=== PATIENT | male | born 1940 | race Caucasian/White ===

== ENCOUNTER → 2017-05-25 | Outpatient (CLI) | payer OTHER, MEDICARE | LOC: FIMAGING 07:45 | PROVIDERS: ATTEND Internal Medicine Infectious Disease | DX: I87.2 Venous insufficiency (chronic) (peripheral) (principal); M79.604 Pain in right leg ==

== ENCOUNTER 2017-10-03 18:16 | Emergency (ER) | payer OTHER, MEDICARE ==
[2017-10-03 18:26] VITALS: RESP 18; TEMP 98.2; O2SAT 96
--- NOTE | 2017-10-03 18:53 | EDPHY ---
H & P Stated Complaint: fall hit head/no loc/memory deficits Time Seen by Provider: 10/03/17 18:52 HPI/ROS: CHIEF COMPLAINT: Mechanical fall, mild headache, amnesia HISTORY OF PRESENT ILLNESS: The patient presents the emergency department after he sustained a mechanical fall. The patient slipped while walking on ice. He fell backwards striking his occiput. The patient has had some retrograde amnesia since the fall. He complains of a mild headache. He denies neck pain, back pain, chest pain, antecedent palpitations or any acute neurologic symptoms. The patient is not anticoagulated. He does take an 81 mg aspirin on a daily basis. REVIEW OF SYSTEMS: A comprehensive 10 point review of systems is otherwise negative aside from elements mentioned in the history of present illness. Source: Patient Exam Limitations: No limitations - Personal History Current Tetanus/Diphtheria Vaccine: Unsure - Medical/Surgical History Hx Asthma: No Hx Chronic Respiratory Disease: No Hx Diabetes: Yes Hx Cardiac Disease: No Hx Renal Disease: No Hx Cirrhosis: No Hx Alcoholism: No Hx HIV/AIDS: No Hx Splenectomy or Spleen Trauma: No Other PMH: kidney/prostate/skin cancer - Social History Smoking Status: Never smoked - Physical Exam Exam: General Appearance: Alert, no distress Head: Atraumatic, minimal occipital tenderness, no hematoma Eyes: Pupils equal, round, reactive ENT, Mouth: No hemotympanum, no oral trauma Neck: Nontender, trachea midline Respiratory: No chest wall tender, subcutaneous air, lungs clear bilaterally Cardiovascular: Regular rate and rhythm Abdomen: Abdomen is soft and nontender, pelvis stable Skin: No lacerations, No abrasion Back: No midline T/L/S pain Extremities: Nontender, full range of motion Neurological: A&Ox3, normal motor function, normal sensory exam Constitutional: Initial Vital Signs Temperature (C) 36.8 C 10/03/17 18:22 Heart Rate 89 10/03/17 18:22 Respiratory Rate 18 10/03/17 18:22 Blood Pressure 119/86 H 10/03/17 18:22 O2 Sat (%) 96 10/03/17 18:22 O2 Delivery Mode Room Air Allergies/Adverse Reactions: No Known Allergies Allergy (Unverified 10/03/17 18:20) Home Medications: Medication Instructions Recorded Atorvastatin Calcium 10/03/17 Metformin HCl 10/03/17 Synthroid 10/03/17 Victoza 3-Stone 10/03/17 Medical Decision Making ED Course/Re-evaluation: Given the patient's age and acute neurologic complaints following a mechanical fall he was taken for a noncontrast head CT scan of the brain which demonstrates no evidence of an intracranial hemorrhage or skull fracture. The patient has a GCS of 15. He is neurologically intact. I have cleared his cervical spine clinically. I re-evaluated the patient at 7:30 p.m.. At this point time I do feel the patient can be discharged home as he is not anticoagulated. The patient will be given customary concussion aftercare instructions. He is advised to return to the emergency department for any severe headache, vomiting, abnormal behavior or other concerns. Differential Diagnosis: Differential diagnosis considered intracranial hemorrhage, skull fracture, concussion Departure - Departure Disposition: Home, Routine, Self-Care Clinical Impression: Concussion Condition: Good Instructions: Concussion (ED) Additional Instructions: 1. Concussion aftercare as directed. 2. Tylenol as needed for pain. 3. Return to the ED for severe headache, abnormal behavior, vomiting, numbness , weakness or other concerns. 4. Please follow-up with your primary care provider as scheduled. Referrals: Merna Pino MD [Primary Care Provider] - As per Instructions
[2017-10-03 19:55] VITALS: BP 126/82; PULSE 76
== END 2017-10-03 19:52 | disposition home or self-care (01) ==
DX: S06.0X0A Concussion without loss of consciousness, initial encounter (principal); E11.9 Type 2 diabetes mellitus without complications; Z79.84 Long term (current) use of oral hypoglycemic drugs; Z85.828 Personal history of other malignant neoplasm of skin; Z85.46 Personal history of malignant neoplasm of prostate; Z85.528 Personal history of other malignant neoplasm of kidney; W01.198A Fall on same level from slipping, tripping and stumbling with subsequent striking against other object, initial encounter; Y99.8 Other external cause status; Y93.01 Activity, walking, marching and hiking